=== PATIENT | male | born 1945 | race African-American/Black ===

== ENCOUNTER 2018-11-27 21:15 | Emergency (ER) | payer MEDICAID, OTHER ==
[~2018-11-27] VITALS: Ht 177.8 cm; Wt 72.6 kg
[2018-11-27 21:15] VITALS: BP 141/82
[~2018-11-27 21:15] MED LIST: No Home meds
--- NOTE | 2018-11-27 21:15 | NUR ---
ED Nurse Note: Pt was BIBA from transitional housing. c/o ETOH. Pt is a/o x 3-4. Pt has a small cut wound on his forehead. Vital signs stable at this time, will continue to monitor.
--- NOTE | 2018-11-27 21:21 | Emergency Room Report ---
History of Present Illness General Chief Complaint: Laceration Source: Patient, Medical Record, EMS Present Illness HPI Is a 73-year-old male with a history of alcohol abuse and high blood pressure. He presents with chief complaint of head injury from a fall. He's been drinking tonight. He was going home and tripped over the threshold. Pain is head. No loss of consciousness. He has some abrasion and bleeding. Denies any other complaint. No nausea no vomiting. History is limited because of his intoxicated state. Allergies: Coded Allergies: No Known Allergies (Unverified , 04/09/12) UNABLE TO ASSESS (Unverified , 11/27/18) Patient History Past Medical History: see triage record, old chart reviewed, HTN, CAD Past Surgical History: other Pertinent Family History: none Social History: Reports: alcohol use Immunizations: other Reviewed Nursing Documentation: PMH: Agreed; PSxH: Agreed Nursing Documentation-PMH Past Medical History: No History, Except For Hx Cardiac Problems: Yes Hx Hypertension: Yes History Of Psychiatric Problem: Yes Review of Systems Eye: Denies: eye pain, blurred vision ENT: Denies: ear pain, nose congestion, throat swelling Respiratory: Denies: cough, shortness of breath Cardiovascular: Denies: chest pain, palpitations Gastrointestinal: Denies: abdominal pain, diarrhea, nausea, vomiting Musculoskeletal: Denies: back pain, joint pain Skin: Denies: rash Neurological: Denies: headache, numbness Endocrine: Denies: increased thirst, increased urine Hematologic/Lymphatic: Denies: easy bruising All Other Systems: negative except mentioned in HPI Physical Exam Vital Signs Date Time Temp Pulse Resp B/P (MAP) Pulse Ox O2 Delivery O2 Flow Rate FiO2 11/27/18 21:10 97.9 100 22 142/80 100 Room Air vitals normal Sp02 EP Interpretation: reviewed, normal General Appearance: well appearing, no apparent distress, alert Head: normocephalic, other - Abrasion to forehead and bridge of nose. Also to face. No laceration. Eyes: bilateral eye PERRL, bilateral eye EOMI ENT: hearing grossly normal, normal pharynx Neck: full range of motion, supple, no meningismus Respiratory: chest non-tender, lungs clear, normal breath sounds Cardiovascular #1: regular rate, rhythm, no murmur Gastrointestinal: normal bowel sounds, non tender, no mass, no organomegaly, no bruit, non-distended Musculoskeletal: back normal, gait/station normal, normal range of motion Psychiatric: mood/affect normal Skin: warm/dry Medical Decision Making Diagnostic Impression: Primary Impression: Head injury, acute Qualified Codes: S09.90XA - Unspecified injury of head, initial encounter Additional Impressions: Facial abrasion Qualified Codes: S00.81XA - Abrasion of other part of head, initial encounter Alcohol intoxication Qualified Codes: F10.920 - Alcohol use, unspecified with intoxication, uncomplicated ER Course Patient presents with alcohol intoxication with a fall and head injury. No evidence of any intracranial injury. CT scan showed possible left orbital fracture. On my exam he has no injury to the left side of the face or eye area. He has no pain. This is most likely old. CT/MRI/US Diagnostic Results CT/MRI/US Diagnostic Results : Imaging Test Ordered: cT head Impression Read by radiologist. No acute intracranial findings. Atrophy of the brain. Left orbital floor fracture, presumably acute. Last Vital Signs Date Time Temp Pulse Resp B/P (MAP) Pulse Ox O2 Delivery O2 Flow Rate FiO2 11/27/18 21:10 97.9 100 22 142/80 100 Room Air Status: improved Disposition: HOME, SELF-CARE Condition: Stable Additional Instructions: Abstain from alcohol. Follow-up with your doctor in 7 days. Return if worse. Jude Mcdowell MD Nov 27, 2018 21:21
[2018-11-27] MEDS ORDERED: Bacitracin Oint UD TOPIC ONE (21:45)
--- NOTE | 2018-11-27 21:59 | NUR ---
ER DISCHARGE NOTE: Patient is cleared to be discharged per Dr. Mcdowell. Pt is aox4 on room air with stable vital signs. pt was given dc and prescription instructions, pt was able to verbalize understanding, pt's id band removed. pt is able to ambulate with steady gait.
--- NOTE | 2018-11-27 22:00 | NUR ---
ED Nurse Note: Attempts made to contact pt's 'transitional living', based on the run sheet.
--- NOTE | 2018-11-27 23:00 | NUR ---
ED Nurse Note: Pt able to provide another number [phone]. No answer, message box full.
--- NOTE | 2018-11-28 01:28 | NUR ---
ED Nurse Note: JOVANA went to facility, spoke with an employee, asked to call [facility] at [phone] - No call received.
--- NOTE | 2018-11-28 07:08 | NUR ---
HAND-OFF: Report given to Jose Luis MANCIA/SHARIFA for continue care.
--- NOTE | 2018-11-28 07:31 | NUR ---
ED Nurse Note: Received pt sleeping in bed. breakfast ordered. will wake pt up and discharge when pt is sober.
[2018-11-28 08:00] VITALS: BP 145/75
--- NOTE | 2018-11-28 08:40 | NUR ---
ED Nurse Note: patient is having breakfast.
--- NOTE | 2018-11-28 09:40 | NUR ---
ED Nurse Note: contacted older adult social work specialist and will try to find placement.
--- NOTE | 2018-11-28 09:48 | Diagnostic Imaging Report ---
Indications: Head trauma, head laceration Technique: Spiral acquisitions obtained through the brain. Angled axial and coronal 5 x 5 mm slices were reconstructed. Total dose length product 1354.5 mGycm. CTDI vol(s) 70.38 mGy. Dose reduction achieved using automated exposure control Comparison: None. Findings: There is mild age-related enlargement of the ventricles and extra axial CSF spaces. Old lacunar infarct is seen in the left basal ganglia. Otherwise normal mcdowell-white differentiation. There is suggestion of a slightly depressed orbital floor fracture. This is not well-demonstrated, however. Material in the left maxillary sinus may reflect blood. The optic globes are intact. The mastoids are clear. Impression: Chronic and age-related changes. Negative for acute intracranial bleed or mass effect Evidence of left orbital floor fracture, not well demonstrated. Possible blood within the left maxillary sinus The CT scanner at [facility] is accredited by the [employer] and the scans are performed using protocols designed to limit radiation exposure to as low as reasonably achievable to attain images of sufficient resolution adequate for diagnostic evaluation.
--- NOTE | 2018-11-28 10:16 | NUR ---
ED Nurse Note: shoe lay out planner and charge nurse are trying to contact the facility and his caregiver.
--- NOTE | 2018-11-28 11:01 | NUR ---
ED Nurse Note: per development planner, Claudia Fairchild or Chaim Alan will come and pick him up by 1400.
--- NOTE | 2018-11-28 11:11 | NUR ---
DISCHARGE PLANNING DCP spoke with patient and confirmed patient is not homeless, [facility] [place] [address]. Patient lives with metal precision machine assembler Chaim Levine ([phone]). Audioprosthologist explained reinaldo fell due to intoxication, DCP provided resources for substance abuse. Audioprosthologist states he or Claudia Fairchild( friend) will be picking up the patient around 14:00 today 11/28/18. Discussed with nurse and charge nurse about discharge plans.
[2018-11-28 14:08] VITALS: BP 145/75
--- NOTE | 2018-11-28 14:09 | NUR ---
ER DISCHARGE NOTE: Patient is cleared to be discharged per ERMD, pt is aox4, two children came to pick him up, on room air, with stable vital signs. pt was given dc instructions with substance abuse reference, pt was able to verbalize understanding, pt id band removed. pt is able to ambulate with steady gait. pt took all belongings.
== END 2018-11-28 14:11 | disposition home or self-care (01) ==
LOC: EDBD 21:15 → EMR 22:17
DX: S00.81XA Abrasion of other part of head, initial encounter (principal); W01.0XXA Fall on same level from slipping, tripping and stumbling without subsequent striking against object, initial encounter; Y92.89 Other specified places as the place of occurrence of the external cause; I10 Essential (primary) hypertension; F10.120 Alcohol abuse with intoxication, uncomplicated
CPT/HCPCS: 70450; 99284